=== PATIENT | female | born 1950 | race Caucasian/White ===

== ENCOUNTER → 2016-11-21 | Outpatient (CLI) | payer MEDICARE, OTHER ==
[~2016-11-21] MED LIST: ALLERGY10 M1 PO; ATORVASTATIN CA20 MG PO; CITRACAL+D(315M1 TAB PO; GARLIC1 EAC1 PO; NASAL ALLERGY16.9 ML NOSE; TURMERIC500 MG PO
== END | disposition disaster alternative care site (69) ==
LOC: GBCOE 09:44
DX: Z12.31 Encounter for screening mammogram for malignant neoplasm of breast (principal)
CPT/HCPCS: G0202